=== PATIENT | male | born 1985 | race Caucasian/White ===

== ENCOUNTER 2016-07-25 14:54 | Emergency (ER) | payer BC, OTHER ==
[~2016-07-25] VITALS: Ht 180.3 cm; Wt 85.2 kg
[~2016-07-25 14:54] MED LIST: NXM/40 PO
[2016-07-25 14:55] VITALS: Ht 180.3 cm; Wt 85.2 kg
[2016-07-25] MEDS ORDERED: PROPARACAINE HCL 0.5% OP SOLN 15 ML BTL OP STA (15:08)
[2016-07-25] MEDS ORDERED: CIPROFLOXACIN HCL 0.3% OP SOLN 2.5 ML BTL OP STA (15:32)
[2016-07-25] MEDS ORDERED: CALC500C73 PO (15:50)
[2016-07-25] MEDS ORDERED: PANT40TA PO (15:50)
[2016-07-25] MEDS ORDERED: RANI300T2 PO (15:50)
[2016-07-25] MEDS ORDERED: CIPR0.3S OP (15:54)
--- NOTE | 2016-07-25 15:56 | EMERGENCY ROOM VISIT NOTE ---
History First contact with patient: 14:59 Chief Complaint: EYE PAIN Stated Complaint: L EYE PAIN History of Present Illness The patient is a 31 year old male who presents to the Emergency Department by private vehicle for evaluation of his LEFT eye pain and irritation. The patient reports he sustained a corneal abrasion to his affected eye 3 years ago. He has since had waxing waning episodes of pain and irritation to the affected area. He's had increasing irritation over the last 3 days. He saw an sewing inspector yesterday prescribed topical medications. He is been using these with minimally his symptoms. The patient is never seen an car jockey. The patient points of photophobia as well as clear discharge from the area. He reports a mild headache. He rates his current discomfort as a 6/10. He denies any illicit, nausea, vomiting, or neck pain/stiffness. Review of Systems A complete 10-point Review of Systems was discussed with the patient, with pertinent positives and negatives listed in the History of Present Illness. All remaining Review of Systems questions can be considered negative unless otherwise specified. Social History Smoking Status: Never Smoker Smokeless Tobacco Use: No Alcohol Use: none Drug Use: none Marital Status: in relationship Housing Status: lives with significant other Occupation Status: employed Current/Historical Medications Scheduled Calcium Carbonate (Calcium), 1 TAB PO DAILY Ciprofloxacin Hcl (Ophth) (Ciloxan Oph), 1 DROP OP Q4H Pantoprazole (Protonix), 40 MG PO QAM Ranitidine Hcl (Zantac), 300 MG PO HS Allergies Coded Allergies: No Known Allergies (Unverified , 03/11/16) Physical Exam Vital Signs Date Time Temp Pulse Resp B/P Pulse Ox O2 Delivery O2 Flow Rate FiO2 07/25/16 16:15 36.8 84 16 145/92 99 07/25/16 14:55 36.8 84 16 145/92 99 Room Air Right Eye Acuity: 20/15 Left Eye Acuity: 20/25 Pain Rating (0-10): 6 Physical Exam VITAL SIGNS - Vital signs and nursing notes were reviewed. GENERAL - 31-year-old male appearing his stated age. Communicates well with provider and answers questions appropriately. HEAD - Normocephalic, Atraumatic. No Puckett's Sign or Raccoon's Eyes. No depressed skull fractures palpable. EYES - PERRL with EOMI bilaterally. Sclera without noticeable foreign body or excoriations. Mild injection noted in the LEFT eye. Without subconjunctival hemorrhage. Palpebral conjunctiva pink and moist with no injection or discharge noted. Slit lamp examination performed as further described. EARS - No deformities of external structures noted on gross examination bilaterally. Handle of malleus, umbo, cone of light, pars tensa/flaccid all easily visualized. NOSE - Midline and without cyanosis. Without discharge. MOUTH/OROPHARYNX - Without perioral cyanosis. Tongue midline with equal elevation of palate bilaterally. No tonsillar hypertrophy, erythema, or exudates noted. Good dentition noted. NECK - FROM assessed. No cervical lymphadenopathy noted. Medical Decision & Procedures Medications Administered Medications (Trade) Dose Ordered Sig/Bob Route Start Time Stop Time Status Last Admin Dose Admin Ciprofloxacin HCl (Ciprofloxacin 0.3% Op Soln) 2 drops NOW STAT OP 07/25/16 15:32 07/25/16 15:34 DC 07/25/16 15:41 2 DROPS Procedure Slit Lamp Examination was performed of the LEFT eye(s). Alcaine drops were applied to the affected eye(s) for proper anesthetization. The affected eye(s) were stained with Fluorescein stain to precipitate adequate visualization of any conjunctival/scleral excoriations or ulcers. The patient's face was comfortably rested on the chin guard of the slit lamp apparatus. The lights were dimmed and the affected eye(s) were thoroughly examined under microscopy using the blue light. Moderate uptake was present in the 4 o'clock position. Additionally, the eye(s) were examined under microscopy using the regular light. Close examination revealed no hyphema or hypopyon. Patient tolerated the procedure well and no complications were met. ED Course Patient was seen and evaluated by myself. Slit-lamp was performed. Patient was provided Ciloxan drops. He was provided contact information for local ophthalmology. The patient was educated on worrisome symptoms for return visit to the emergency department. Patient discharged home in good condition. Medical Decision Given the patient's presentation and exam finds, I did elect to perform the above-mentioned workup. Slit-lamp exam was performed. The patient does appear to have an acute exacerbation of chronic corneal region. Patient was provided topical antibiotic. He is provided contact information for ophthalmology for continued evaluation and management. The patient was educated on worrisome symptoms for return visit to the emergency department. Patient discharged home in good condition. In the evaluation and treatment of this patient, the following differential diagnoses were considered: Corneal Abrasion, Conjunctivitis, Eye Contusion, Globe Injury, Orbital Floor Injury (Blowout Fracture), Corneal Ulcer, Keratitis , Herpes Zoster Ophthalmic, Blepharitis, Orbital Cellulitis, Iritis, Scleritis/ Episcleritis, Uveitis, Temporal Arteritis, Subconjunctival Hemorrhage. Impression Primary Impression: Corneal abrasion Departure Information Dispostion Home / Self-Care Condition GOOD Prescriptions Ciprofloxacin Hcl (Ophth) (CILOXAN OPH) 0.3 % Marian 1 DROP OP Q4H for 7 Days, #1 BTL Prov: Thien Olivia PA-C 07/25/16 Referrals Mike Castillo M.D. (PCP) Beto Tam MD Patient Instructions ED Eye Injury Corneal Abrasion, [facility] Additional Instructions You have been treated in the Emergency Department for a Corneal Abrasion. You were prescribed Ciloxan to be used as prescribed. This is an antibiotic. Stop this medication and contact a medical provider if you were to develop any significant adverse side effects including: wheezing, shortness of breath, passing out, vomiting, or a diffuse rash. Always take antibiotics as directed and COMPLETE the ENTIRE course regardless of the improvement of your symptoms. For pain control, you can use the following [id number] medicines (if >12 yo): - Regular strength (325mg/tab) Tylenol (acetaminophen) 2 tabs every 4-6 hours as needed. Do not exceed 12 tablets in a 24 hour period. Avoid taking more than 4 grams (4000 mg) of Tylenol per day. This includes any other sources of acetaminophen you may take on a regular basis. - Regular strength (200 mg/tab) Advil (ibuprofen) 1-2 tabs every 4-6 hours as needed. Do not exceed a dose of 3200 mg per day. Avoid rubbing your eyes for the next few days as this can cause irritation. Wear sunglasses when outside to help minimize your pain. You should relax in a quiet, dark room to help minimize your symptoms. You should seek evaluation of your Corneal Abrasion by an car jockey following your visit to the Emergency Department. The Emergency Department is not capable of treating optic issues long-term. You should call your car jockey as soon as possible to make an appointment for evaluation of your follow-up care. Return to the emergency department if you develop the following symptoms despite treatment course outlined above: blurry vision, loss of vision, fever, intractable pain, increased redness, swelling, or purulent discharge. Problem Qualifiers Primary Impression: Corneal abrasion Encounter type: initial encounter Laterality: left Qualified Codes: S05.02XA - Injury of conjunctiva and corneal abrasion without foreign body, left eye, initial encounter
[2016-07-25 16:15] VITALS: BP 145/92; PULSE 84; TEMP 36.8; O2SAT 99
== END 2016-07-25 16:00 | disposition home or self-care (01) ==
LOC: C.EDB 14:55 → C.EDD 16:00
DX: S05.02XA Injury of conjunctiva and corneal abrasion without foreign body, left eye, initial encounter (principal); Z79.899 Other long term (current) drug therapy; X58.XXXA Exposure to other specified factors, initial encounter; Y99.8 Other external cause status